=== PATIENT | female | born 1980 | race African-American/Black ===

== ENCOUNTER 2023-10-16 09:21 | Day surgery (SDC) | payer OTHER ==
[2023-10-16] MEDS: SOD FERRIC GLUC COMPLX/SUCROSE 125 MG in NA CHLORIDE 0.9% 100 ML IV ONE (10:05)
[2023-10-16 10:12] VITALS: BP 125/73; TEMP 97.5; O2SAT 99; BMI 34.4
== END 2023-10-16 11:15 | disposition home or self-care (01) ==
LOC: DS 09:21
PROVIDERS: ATTEND Nurse Practitioner Family
DX: D50.9 Iron deficiency anemia, unspecified (principal)
CPT/HCPCS: 96365; 96366; J2916

== ENCOUNTER → 2023-11-05 | Day surgery (SDC) | payer OTHER ==
[2023-11-05 09:20] VITALS: BP 156/89; TEMP 97.7; O2SAT 100; BMI 34.9
[2023-11-05] MEDS: SOD FERRIC GLUC COMPLX/SUCROSE 125 MG in NA CHLORIDE 0.9% 100 ML IV SCH (09:38)
== END ==
LOC: DS 08:46
PROVIDERS: ATTEND Nurse Practitioner Family
DX: D50.9 Iron deficiency anemia, unspecified (principal)
CPT/HCPCS: 96365; J2916